=== PATIENT | female | born 1980 ===

== ENCOUNTER 2018-10-18 09:42 | Day surgery (SDC) | payer OTHER ==
[~2018-10-18 09:42] MED LIST: NO; PROTONIX20 MG PO; PROTONIX40 M1 PO
== END 2018-10-18 16:40 | disposition home or self-care (01) ==
LOC: CIR.AMB 09:42
DX: N84.0 Polyp of corpus uteri (principal)

== ENCOUNTER 2019-02-05 07:28 | Outpatient (CLI) | payer OTHER | END 2019-02-05 07:48 | disposition home or self-care (01) | LOC: TOM 07:28 | DX: K56.600 Partial intestinal obstruction, unspecified as to cause (principal); R10.9 Unspecified abdominal pain; N80.3 Endometriosis of pelvic peritoneum; K66.0 Peritoneal adhesions (postprocedural) (postinfection) ==

== ENCOUNTER → 2019-02-05 | Outpatient (CLI) | payer OTHER | END | disposition home or self-care (01) | LOC: TOM 01-29 07:45 | DX: K66.0 Peritoneal adhesions (postprocedural) (postinfection) (principal); R10.84 Generalized abdominal pain; N80.3 Endometriosis of pelvic peritoneum ==

== ENCOUNTER 2019-04-30 07:45 | Inpatient (IN) | payer OTHER ==
[~2019-04-30] VITALS: Ht 152.4 cm; Wt 52.2 kg
[2019-05-13] MEDS ORDERED: ULTRACET PO (11:48)
== END 2019-05-13 11:59 | disposition home or self-care (01) | DRG 331 ==
LOC: O/R 07:45 → SURG 05-07 07:38 → O/R 05-07 07:38 → SURH 05-07 07:45 → SURG 05-07 14:11 → SURH 05-07 14:15 → SURG 05-13 11:59
PROVIDERS: Obstetrics & Gynecology Gynecologic Oncology; ADMIT Surgery
PROC: 0DJD8ZZ Inspection of Lower Intestinal Tract, Via Natural or Artificial Opening Endoscopic (ICD-10-PCS; 2019-05-07)
PROC: 0UT94ZZ Resection of Uterus, Percutaneous Endoscopic Approach (ICD-10-PCS; 2019-05-07)
PROC: 0UT74ZZ Resection of Bilateral Fallopian Tubes, Percutaneous Endoscopic Approach (ICD-10-PCS; 2019-05-07)
PROC: 0UT24ZZ Resection of Bilateral Ovaries, Percutaneous Endoscopic Approach (ICD-10-PCS; 2019-05-07)
PROC: 0TN Urinary System, Release (ICD-10-PCS; 2019-05-07)
PROC: 0DTN4ZZ Resection of Sigmoid Colon, Percutaneous Endoscopic Approach (ICD-10-PCS; principal; 2019-05-07 14:15)
PROC: 0DTP4ZZ Resection of Rectum, Percutaneous Endoscopic Approach (ICD-10-PCS; 2019-05-07 14:15)
DX: K56.690 Other partial intestinal obstruction (principal); D25.2 Subserosal leiomyoma of uterus; N80.2 Endometriosis of fallopian tube; N80.5 Endometriosis of intestine; N80.1 Endometriosis of ovary; N80.3 Endometriosis of pelvic peritoneum; N80.0 Endometriosis of uterus; N72 Inflammatory disease of cervix uteri; N83.11 Corpus luteum cyst of right ovary; N84.0 Polyp of corpus uteri